=== PATIENT | male | born 1980 | race Caucasian/White ===

== ENCOUNTER 2018-10-14 15:04 | Emergency (ER) | payer BC, OTHER ==
--- NOTE | 2018-10-14 16:26 | ED ---
General Adult HPI - General Chief complaint: Headache Stated complaint: Headache Time Seen by Provider: 10/14/18 15:51 Source: patient, RN notes reviewed Mode of arrival: ambulatory Limitations: no limitations - History of Present Illness Initial comments: Chief complaint and history of present illness this is a 38-year-old male here for complaint of several weeks of chronic sinus type inflammation. Both ears feel plugged and muffled. States he felt worse 10 days ago possibly with a fever and chills. - Related Data Home Medications Medication Instructions Recorded Confirmed Dextroamphetamine/Amphetamine 2.5 mg PO DAILY 12/14/14 12/14/14 [Adderall] HYDROcodone/APAP 7.5-325MG [[place] 1 each PO BID 12/14/14 12/14/14 7.5-325] Previous Rx's Medication Instructions Recorded Hydrocodone/Acetaminophen [[place] 1 each PO Q6HR PRN #20 tab 12/14/14 5-325] valACYclovir [Valtrex] 1 g PO Q8H 7 Days tablet 12/14/14 Amoxicillin/Potassium Clav 1 each PO Q12HR #20 tab 10/14/18 [Augmentin 875-125 Tablet] Allergies Allergy/AdvReac Type Severity Reaction Status Date / Time No Known Allergies Allergy Verified 10/14/18 15:39 Review of Systems ROS Statement: Those systems with pertinent positive or pertinent negative responses have been documented in the HPI. Review of systems currently no headache at this time though he has headache and mid morning because of ear pain. Denies nausea vomiting. No stiff neck. No chest pain shortness of breath no GI/ problems no neuro deficits. All systems are reviewed. ROS Other: All systems not noted in ROS Statement are negative. Past Medical History Past Medical History: No Reported History History of Any Multi-Drug Resistant Organisms: None Reported Past Surgical History: Tonsillectomy Past Psychological History: No Psychological Hx Reported Smoking Status: Current every day smoker Past Alcohol Use History: None Reported Past Drug Use History: None Reported General Exam - General Exam Comments Initial Comments: General: The patient is awake and alert, patient is here because of sensation of bilateral ear fullness ongoing for 10 days or longer. No problems with dizziness. Occasional headache. No stiff neck. Vital signs shows temperature 98.2 pulse 104 , respiratory rate 99 pulse oximetry 99% room air blood pressure 160/76. Eye: Pupils are equal, round and reactive to light, extra-ocular movements are intact ; there is normal conjunctiva bilaterally. No signs of icterus. Ears, nose, mouth and throat: There are moist mucous membranes and no oral lesions. One eardrum retracted 1 and drawn bulging. Neck: The neck is supple, there is no tenderness or JVD. Mild anterior cervical lymphadenopathy, thyroid not enlarged. No headache at this time no meningeal irritation, no meningismus. Cardiovascular: There is a regular rate and rhythm. No murmur, rub or gallop is appreciated. Respiratory: Lungs are clear to auscultation, respirations are non-labored, breath sounds are equal. No wheezes, stridor, rales, or rhonchi. Gastrointestinal: Soft, non-distended, non-tender abdomen without masses or organomegaly noted. Back: There is no tenderness to palpation in the midline. Musculoskeletal: Normal ROM, no tenderness, There is no pedal edema. Neurological:% CN II-XII intact, There are no obvious motor or sensory deficits. Coordination appears grossly intact. Speech is normal. Denies any neuro deficits Skin: Skin is warm and dry and no rashes or lesions are noted. Psychiatric: Cooperative, Limitations: no limitations Course Vital Signs 10/14/18 15:37 Temperature 98.2 F Pulse Rate 104 H Respiratory 18 Rate Blood Pressure 160/76 O2 Sat by Pulse 99 Oximetry Medical Decision Making - Medical Decision Making Medical decision making; this is a 38-year-old male here with a complaint of bilateral ear fullness discomfort. A week or longer of upper respiratory tract congestion. The patient be placed on Augmentin 875 twice daily for 10 days. Also advised to lemon picker [id number] Claritin. Also advised to talk to the family physician about getting off his smoking habit. Disposition Clinical Impression: Otitis media Disposition: HOME SELF-CARE Condition: Fair Instructions: Ear Infection (ED) Additional Instructions: Take Augmentin twice daily as directed for 10 days. Use nasal drops and over- the-counter Bella or Claritin. Follow-up with family physician. Follow-up physician follow-up with on-call doctor and discuss ways to stop smoking. Prescriptions: Amoxicillin/Potassium Clav [Augmentin 875-125 Tablet] 1 each PO Q12HR #20 tab Is patient prescribed a controlled substance at d/c from ED?: No Referrals: None,Stated [Primary Care Provider] - 1-2 days Wanda Khan MD [STAFF PHYSICIAN] - 1-2 days Time of Disposition: 16:30
[2018-10-14 16:47] VITALS: BP 126/93; PULSE 71; RESP 16; TEMP 98.1
== END 2018-10-14 16:47 | disposition home or self-care (01) ==
LOC: EC 15:04
DX: H66.93 Otitis media, unspecified, bilateral (principal); F17.200 Nicotine dependence, unspecified, uncomplicated; Z79.891 Long term (current) use of opiate analgesic; Z79.899 Other long term (current) drug therapy
CPT/HCPCS: 99283